=== PATIENT | female | born 1975 | race Hispanic/Latino ===

== ENCOUNTER 2018-12-12 06:40 | Emergency (ER) | payer OTHER, SELFPAY ==
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
[2018-12-12] MEDS ORDERED: IBUPROFEN 400 MG TAB ONE (07:07)
== END 2018-12-12 07:08 | disposition home or self-care (01) ==
LOC: ER 06:40
DX: T20.19XA Burn of first degree of multiple sites of head, face, and neck, initial encounter (principal); T21.11XA Burn of first degree of chest wall, initial encounter; T31.0 Burns involving less than 10% of body surface; X11.8XXA Contact with other hot tap-water, initial encounter; Y93.01 Activity, walking, marching and hiking
CPT/HCPCS: 99283